=== PATIENT | female | born 1990 | race Caucasian/White ===

== ENCOUNTER 2016-12-21 16:18 | Emergency (ER) | payer OTHER ==
[~2016-12-21] VITALS: Ht 170.2 cm; Wt 68.2 kg
[~2016-12-21 16:18] MED LIST: IBUP-1152 PO
[2016-12-21 16:33] VITALS: BP 120/70; PULSE 55; RESP 15; O2SAT 100
--- NOTE | 2016-12-21 16:58 | ED.REPORT ---
HPI-Dental/Mouth Prob Date of Service Dec 21, 2016 ED Provider: Doc,Ed MD History of Present Illness: lower right tooth pain, ongoing for a while. usually clove oil helps dentist appoinment 01/13/2017/ pain Nursing Notes Stated Complaint: TOOTH PAIN Chief Complaint: Dental Nursing Notes Reviewed: Yes Allergies: Coded Allergies: No Known Allergies (Unverified , 12/21/16) Scheduled PRN IBUPROFEN-Expunged Drug, Do Not Renew! (IBUPROFEN-Expunged Drug, Do Not Renew!) 800 Mg Tablet 800 MG PO Q6 PRN PRN General Time Seen by MD: 16:57 Chief Complaint Tooth pain Hx Obtained From: Patient Onset Occurred: More than a week ago... (2 weeks) Symptom Duration: Since onset Past Medical History Past Medical History Reports: Asthma, Diabetes mellitus Past Surgical History Reports: Appendectomy Smoking History Former Smoker (quit 2 months ago 12/21/2016) Social History Alcohol Use: "Social" Drug Use: Denies drug use Occupation single lives with children work at 3 different jobs 12/21/2016 Ambulatory Status Independent Review of Systems Basic Review of Systems Eyes: Vision NL, No discharge Cardiovascular: No chest pain, No dyspnea on exertion, No orthopnea, No parox noct dyspnea, No palpitations : No dysuria, No frequency Musculoskeletal: No extremity swelling, No extremity pain, Full range of motion , Joints NL Hematologic: No bleeding, No bruising Endocrine: No cold intolerance, No heat intolerance, No weight gain, No weight loss Skin: No bruising, No rash, No itch Allergy / Immune: No allergy Neurologic: NL mental status, No weakness, No numbness Psychiatric: Normal thought content Physical Exam Initial Vital Signs Vital Signs (First) Date Time Temp Pulse Resp B/P Pulse Ox O2 Delivery O2 Flow Rate FiO2 12/21/16 16:33 37.1 55 15 120/70 100 Room Air Initial VS: Reviewed, Vital signs normal General/Constitutional: Well-developed, Well-nourished Head / Eyes: Atraumatic, Normocephalic, PERRL Respiratory: Breath sounds normal, Clear to auscultation, No respiratory distress Cardiovascular: Regular rate & rhythm, Heart sounds normal, Intact distal pulses Abdomen / GI: Soft, Non-tender, No guarding, No rebound, No distention Back: No CVA tenderness Lymphatic: No lymphadenopathy Extremities: Vascular intact, Neuro intact, No swelling, No tenderness Skin: Warm, Dry, No cyanosis Neurologic: Alert, Oriented, Nonfocal Psychiatric: Mood/affect normal, Behavior normal, Normal thought content right lower tooth has large filling with missing part of the tooth. Mild gum swelling, no facial swelling. no trismus Neck: Atraumatic, Supple, No meningismus, Full range of motion, No adenopathy General/Constitutional: Awake, Alert, No acute distress Head / Eyes: Atraumatic, Normocephalic, PERRL Respiratory / Chest: Atraumatic, Breath sounds NL, Breath sounds = bilat Cardiovascular: Heart rate NL, Regular rhythm, Heart sounds NL Discharge & Departure Primary Impression: Toothache Disposition: Home Patient Instructions: Dental Caries (ED) Additional Instructions: The exam shows some swelling about the tooth. Continue with amoxicillin 500 mg 3 times a day for 10 days. You received a toradol injection in the ER. Continue with ibuprofen 800 mg 3 times a day. Can use hydrocodone 1 at night as needed for severe pain.Some dental resources are provided. You can call and see if you can get in sooner then 01/13/2017. I am sorry you are having dental discomfort! Referrals: Grisel Escoto MD (PCP) [facility] Dental [facility] EDSupervising Provider for APC: Quinten Nixon MD copies to: Grisel Escoto MD, Sue ARNP Dec 21, 2016 16:58
[2016-12-21] MEDS ORDERED: Ketorolac 30 mg/mL 2 mL Inj IM ONE (17:05)
[2016-12-21] MEDS ORDERED: _HYDROcodone/APAP 5-325 mg Tablet PO PRN (17:10)
[2016-12-21 18:07] VITALS: BP 108/67; PULSE 82; O2SAT 96
[2016-12-21] MEDS ORDERED: _Amoxicillin 500 mg Capsule PO SCH (20:30)
== END 2016-12-21 18:10 | disposition home or self-care (01) ==
LOC: SED 16:18
DX: K08.89 Other specified disorders of teeth and supporting structures (principal); J45.909 Unspecified asthma, uncomplicated; E11.9 Type 2 diabetes mellitus without complications; Z87.891 Personal history of nicotine dependence
CPT/HCPCS: 96372; 99283; J1885

== ENCOUNTER 2017-01-07 23:43 | Emergency (ER) | payer OTHER ==
[~2017-01-07] VITALS: Ht 170.2 cm; Wt 68.2 kg
[2017-01-07 23:45] VITALS: BP 113/76; PULSE 63; RESP 16; O2SAT 98
--- NOTE | 2017-01-07 23:53 | ED.REPORT ---
HPI-Dental/Mouth Prob Date of Service Jan 07, 2017 ED Provider: Dr. Donis 26 y/o female presents to ED complaining of severe right lower dental pain that began earlier today. She has been experiencing this pain on and off over the past 3 months. Patient was first seen in the ED with this complaint on Dec 21 and was prescribed Amoxicillin and Hydrocodone. Patient states that this improved her symptoms for some time. The patient works in [place] and was seen at [facility] 2-3 weeks ago, receiving a shot that improved her symptoms. Patient does not remember what the shot consisted of. However, the patient describes gradually "feeling the infection" at the back of her throat since that time. go backward into her throat since then. Pt has a dentist appointment next week, 01/13/17. She denies any bad taste in her mouth, discharge from her tooth, fevers, chills, shortness of breath, or dysphagia. Nursing Notes Stated Complaint: TOOTH INFECTION Chief Complaint: Dental Nursing Notes Reviewed: Yes Allergies: Coded Allergies: No Known Allergies (Unverified , 01/07/17) Scheduled Amoxicillin (Amoxicillin) 500 Mg Capsule 500 MG PO TID Scheduled PRN Hydrocodone-Acetaminophen 5-325 mg (Hydrocodone-Acetaminophen 5-325 mg) 1 Each Tablet 1 TABLET PO Q6H PRN PRN For Pain IBUPROFEN-Expunged Drug, Do Not Renew! (IBUPROFEN-Expunged Drug, Do Not Renew!) 800 Mg Tablet 800 MG PO Q6 PRN PRN General Time Seen by MD: 23:53 Chief Complaint Other (Right lower dental pain.) Hx Obtained From: Patient Arrived By: Walk-in Onset Occurred: More than a week ago... (3 weeks, worse in severity tonight) Symptom Duration: Intermittent Quality: Painful Radiation: : Does not radiate Severity: Current: Moderate Severity: Maximum: Severe Recent Healthcare: No recent hospitalization, Recent doctor visit Similar Sx Previous: No Past Medical History Past Medical History Reports: Asthma Past Surgical History Reports: Appendectomy Smoking History Former Smoker Social History Alcohol Use: "Social" Drug Use: Denies drug use Other Social History: Good social support, Local resident Occupation single lives with children, works at 3 different jobs 12/21/2016 Ambulatory Status Independent Review of Systems Review of Systems Note: Denies bad taste, oral discharge Constitutional: Denies: Chills, Fever Ears / Nose / Throat: Reports: Mouth pain (Right lower jaw.) Respiratory: Denies: Shortness of breath GI: Denies: Dysphagia Complete sys rev & neg: except as marked. Physical Exam Initial Vital Signs Vital Signs (First) Date Time Temp Pulse Resp B/P Pulse Ox O2 Delivery O2 Flow Rate FiO2 01/07/17 23:45 36.2 63 16 113/76 98 Room Air Initial VS: Reviewed, Vital signs normal General/Constitutional: Well-developed, Well-nourished ENT: Atraumatic, Mucous membranes moist Dental / Gums: Positive: Tender to percussion (Tooth number 30 tender to percussion.) Neck: Atraumatic, No adenopathy (No cervical adenopathy.) General/Constitutional: Awake, Alert, Well appearing Head / Eyes: Atraumatic, Normocephalic, PERRL, EOMI tenderness and swelling of the right lower jaw Respiratory / Chest: Atraumatic, Breath sounds NL, Breath sounds = bilat, No respiratory distress, No rales, No rhonchi, No wheezing Cardiovascular: No gallop, No murmurs, No rubs Heart Rate / Rhythm: Positive: Tachycardia (Slight tachycardia) Neurologic: Oriented X3, Speech NL, No sensory deficits Abdomen: Atraumatic, No guarding, No rebound Upper Extremity / MS: Atraumatic, Full range of motion Wrist / Hand: Atraumatic, Full range of motion Lower Extremity / Pelvis / MS: Atraumatic, Full range of motion Skin: Warm, Dry Procedures Dental Nerve Block Time: 00:30 Block Performed by: ED physician Consent / Setup / Site Prep: Consent from patient, Time-out performed, Mucous membrane dried, Hand hygiene observed Anesthesia: Other (mandibular nerve and alveolar nerve.) Local Anesthesia: Bupivacaine 0.5% (with Epi) Post-Procedure / Complications: No complications, Condition improved, Tolerated procedure well, Patient stable, No bleeding Re-Eval/Medical Decision Med Decision/Clinical Course The patient presents with dental pain and swelling, is consistent with an evolving infection. She is given a dental block with improvement in her pain and started on antibiotics. This point is no sign of airway obstruction or significant infection such as Javy's angina. Source of Hx: Old records Re-Evaluation/Progress : Time of Eval: 00:45 Patient Status: Condition improved Re-Evaluation/Progress Note: Patient understands and agrees with the plan to be discharged home. Discharge instructions and follow-up discussed. All questions were addressed. Return to the ED warnings given. Counseled Regarding: Diagnosis, Need for follow-up (Follow up with dentist as planned.), When/why to return to ED Discharge & Departure Primary Impression: Dental infection Disposition: Home Discharge Condition All VS Reviewed: Yes Condition: Stable Patient Instructions: Dental Abscess (ED) Additional Instructions: Follow through with your planned dental appointment. Use prescribed pain medication sparingly. You can also take ibuprofen to treat for pain. Seek care for fever, swelling, or new or concerning symptoms. Referrals: Grisel Escoto MD (PCP) Scribe Attestation Portions of this note were transcribed by Krishna Mccall and Edith Greene. I, Dr. Donis personally performed the history, physical exam and medical decision- making; I reviewed and confirmed the accuracy of the information in the transcribed note. Signed by: Krishna Mccall and Ngoc De La Rosa, 01/08/2017 and 0142. copies to: Grisel Escoto MD, Jena M MD Jan 07, 2017 23:53 Krishna Mccall Jan 08, 2017 00:06 Edith Greene Jan 08, 2017 01:42
[2017-01-08] MEDS ORDERED: HYDROcodone-APAP 5-325 mg Tablet PO ONE (00:15)
[2017-01-08] MEDS ORDERED: Dexamethasone 10 mg/mL Inj IM ONE (00:15)
[2017-01-08] MEDS ORDERED: AMOX500C2 PO (00:18)
[2017-01-08] MEDS ORDERED: HYDR-4003 PO (00:18)
[2017-01-08 00:49] VITALS: BP 113/76; PULSE 63; RESP 16; O2SAT 98
== END 2017-01-08 00:50 | disposition home or self-care (01) ==
LOC: SED 23:43
DX: K04.7 Periapical abscess without sinus (principal); J45.909 Unspecified asthma, uncomplicated; Z87.891 Personal history of nicotine dependence
CPT/HCPCS: 64400; 96372; 99283; J1100

== ENCOUNTER 2017-01-10 02:32 | Emergency (ER) | payer OTHER ==
[~2017-01-10] VITALS: Ht 170.2 cm; Wt 68.2 kg
[~2017-01-10 02:32] MED LIST changes: +AMOX500C2 PO; +HYDR-4003 PO
[2017-01-10 02:45] VITALS: BP 137/96; PULSE 65; RESP 16; O2SAT 99
--- NOTE | 2017-01-10 03:07 | ED.REPORT ---
HPI-Dental/Mouth Prob Date of Service Jan 10, 2017 ED Provider: Dr. Levi Amaro MD A 26 year old female presents to the ED complaining of dental pain that began approx. one month ago. She states that the pain and swelling have become increasingly worse in the past few hours. Patient was seen in the ED on 12/21 and 01/07 for toothache and dental infection. She has a dentist appointment scheduled for 01/13 and has been unable to see her dentist before this date. She denies any fever or history of diabetes. Nursing Notes Stated Complaint: DENTAL PAIN Chief Complaint: Dental Nursing Notes Reviewed: Yes Allergies: Coded Allergies: No Known Allergies (Unverified , 01/07/17) Scheduled Amoxicillin (Amoxicillin) 500 Mg Capsule 500 MG PO TID Amoxicillin (Amoxicillin) 500 Mg Tablet 500 MG PO TID Scheduled PRN Hydrocodone-Acetaminophen 5-325 mg (Hydrocodone-Acetaminophen 5-325 mg) 1 Each Tablet 1 TABLET PO Q6H PRN PRN For Pain IBUPROFEN-Expunged Drug, Do Not Renew! (IBUPROFEN-Expunged Drug, Do Not Renew!) 800 Mg Tablet 800 MG PO Q6 PRN PRN Ibuprofen (Ibuprofen) 600 Mg Tablet 600 MG PO QID PRN PRN For Pain Tramadol (Tramadol) 50 Mg Tablet 100 MG PO Q6H PRN PRN For Pain General Time Seen by MD: 03:07 Chief Complaint Tooth pain Hx Obtained From: Patient Arrived By: Walk-in Onset Occurred: 1 - 4 hours ago Symptom Duration: Since onset Location: : Tooth upper R bicuspid Quality: Painful Radiation: : Face Severity: Current: Mild Severity: Maximum: Moderate Pertinent Negative: Pt denies other symptoms Recent Healthcare: Recent doctor visit, Recent hospitalization Past Medical History Past Medical History Reports: Asthma Past Surgical History Reports: Appendectomy Smoking History Former Smoker Social History Alcohol Use: "Social" Drug Use: Denies drug use Other Social History: Good social support, Local resident Occupation single lives with children, works at 3 different jobs 12/21/2016 Ambulatory Status Independent Review of Systems Facial swelling periorbital pain Constitutional: Denies: Chills, Fever Ears / Nose / Throat: Reports: Toothache Respiratory: Denies: Shortness of breath GI: Denies: Abdominal pain, Nausea, Vomiting Complete sys rev & neg: except as marked. Cardiovascular: Denies: Chest pain Neurologic: Denies: Change LOC Physical Exam Initial Vital Signs Vital Signs (First) Date Time Temp Pulse Resp B/P Pulse Ox O2 Delivery O2 Flow Rate FiO2 01/10/17 02:45 36.5 65 16 137/96 99 01/10/17 04:05 Room Air Initial VS: Reviewed Skin: Warm, Dry, No cyanosis Neurologic: Alert, Oriented, Nonfocal Psychiatric: Mood/affect normal, Behavior normal, Normal thought content ENT: Atraumatic, Airway patent, Mucous membranes moist, Pharynx NL Dental / Gums: Positive: Dental abscess, Gum swelling, Gum tenderness ENT: #3 isolated Tender with swelling Tooth appears to be overwhelmed by gum overgrowth No evidence of fracture or gross carious decay #4 missing Right cheek swelling Tongue and pharynx are mobile Voice is normal No drainable abscess in buckle Neck: Atraumatic, Supple, Full range of motion General/Constitutional: Awake, Alert, Well hydrated Head / Eyes: Atraumatic, Normocephalic Respiratory / Chest: Atraumatic, No respiratory distress Upper Extremity / MS: Atraumatic, Neurologic intact, Vascular intact Lower Extremity / Pelvis / MS: Atraumatic, Neurologic intact, Vascular intact Procedures Dental Nerve Block Dental Nerve Block Note: .5% Marcaine with epi Injected into mandibular nerve Pus ball observed and partially drained Time: 04:00 Block Performed by: ED physician Consent / Setup / Site Prep: Consent from patient, Time-out performed, Mucous membrane dried, Hand hygiene observed, Stand sterile technique Local Anesthesia: Lidocaine w epi 1% Post-Procedure / Complications: No complications, Condition improved, Tolerated procedure well, Patient stable, No bleeding Re-Eval/Medical Decision Med Decision/Clinical Course 26-year-old female with rapid onset of a dental abscess after a lesser prodrome over the past week or so. Requesting a dental block. The fact of dental blocks being less effective and infected tissue was discussed explicitly. At her request, dental block was placed, with fairly good anesthesia. Marcaine and light with appendectomy were employed for rapid onset and for more prolonged effect. During infiltration, an area of abscess became obviously drainable and was drained with an 18-gauge needle. She tolerated all this well and is discharged in stable condition, on amoxicillin, ibuprofen, and tramadol when necessary. Follow-up with dentist already planned. Re-Evaluation/Progress #1: Time of Eval: 03:29 Patient Status: Condition improved Re-Evaluation/Progress Note: Patient is rechecked. She is informed of her results and diagnosis. All questions are addressed. Patient is instructed to keep her dental appointment. She understands and agrees with the treatment plan. Re-Evaluation/Progress #2: Time of Eval: 03:43 Patient Status: Condition improved Re-Evaluation/Progress Note: Patient is rechecked. She is requesting lidocaine prior to discharge. Patient agrees with plan to discharge. Re-Evaluation/Progress #3: Time of Eval: 04:00 Patient Status: Condition improved Re-Evaluation/Progress Note: Dental Block performed. Patient toelrates procedure well. Counseled Regarding: Diagnosis, Need for follow-up, When/why to return to ED Discharge & Departure Primary Impression: Toothache Additional Impression: Dental abscess Disposition: Home Discharge Condition All VS Reviewed: Yes Condition: Stable Patient Instructions: Dental Abscess (ED) Additional Instructions: This is ultimately a surgical problem. It is essential to see a dentist as soon as possible. Antibiotics will reduce the infection but not kill it completely, and it will recur. Begin amoxicillin three times a day. Tramadol 1 -2 tablets four times a day as needed for pain. Ibuprofen four times daily for pain. Return for any difficulty swallowing speaking or other new symptoms of concern. Referrals: Grisel Escoto MD (PCP) Scribe Attestation Portions of this note were transcribed by Josh Cobos. I, Dr. Amaro personally performed the history, physical exam and medical decision-making; I reviewed and confirmed the accuracy of the information in the transcribed note. Signed by: Ngoc Young, 01/10/17 0400. copies to: Grisel Escoto MD, Christopher W MD Jan 10, 2017 03:07 JOSH COBOS Jan 10, 2017 03:15
[2017-01-10] MEDS ORDERED: Dexamethasone 20 mg/2 mL Oral Solution PO ONE (03:15)
[2017-01-10] MEDS ORDERED: Ketorolac 30 mg/mL 2 mL Inj IM ONE (03:15)
[2017-01-10] MEDS ORDERED: AMOX500T2 PO (03:17)
[2017-01-10] MEDS ORDERED: TRAM50TA2 PO (03:17)
[2017-01-10] MEDS ORDERED: IBUP-1827 PO (03:17)
[2017-01-10] MEDS ORDERED: Lidocaine 1%-Epi 1:100,000 20 mL Inj ONE (03:35)
[2017-01-10] MEDS ORDERED: Bupivacaine 0.5%/EPI 50 mL Inj ONE (03:35)
[2017-01-10 04:05] VITALS: BP 128/88; PULSE 62; RESP 16; O2SAT 100
== END 2017-01-10 03:17 | disposition home or self-care (01) ==
LOC: SED 02:32
DX: K08.89 Other specified disorders of teeth and supporting structures (principal); K04.7 Periapical abscess without sinus; J45.909 Unspecified asthma, uncomplicated; Z87.891 Personal history of nicotine dependence
CPT/HCPCS: 64400; 96372; 99283; J1885